=== PATIENT | female | born 1990 | race Caucasian/White ===

== ENCOUNTER 2017-04-12 09:19 | Emergency (ER) | payer OTHER ==
[2017-04-12] MEDS ORDERED: Sodium Chloride 0.9% 1,000 ML IV ONE (09:35)
[2017-04-12] MEDS ORDERED: Sodium Chloride 0.9% 1,000 ML ONE (09:45)
--- NOTE | 2017-04-12 09:56 | C.PDOC ---
History Of Present Illness Patient is a 26 y/o female, with no significant PMHx, presents to the ED for evaluation of dizziness, nausea, vomiting, and wobbly/weak in her legs for the last 4 days. Patient notes taking Advil at home with no improvement. Patient describes dizziness as spinning sensation, and is worse when moving her head. Patient feels as if she will fall when walking. Otherwise, denies any fever, chills, abdominal pain, headache, or any other associated symptoms at this time. No PMD Time Seen by Provider: 04/12/17 09:35 Chief Complaint (Nursing): Dizziness/Lightheaded History Per: Patient History/Exam Limitations: no limitations Onset/Duration Of Symptoms: Days (4) Current Symptoms Are (Timing): Still Present Recent travel outside of the [place]: No Additional History Per: Patient Past Medical History Reviewed: Historical Data, Nursing Documentation, Vital Signs Vital Signs: Last Vital Signs Temp 98.3 F 04/12/17 13:18 Pulse 73 04/12/17 13:18 Resp 18 04/12/17 13:18 BP 99/63 L 04/12/17 13:18 Pulse Ox 99 04/12/17 13:18 - Medical History PMH: No Chronic Diseases Surgical History: - [facility] Procedures ANESTH INJECT-SPIN CANAL (03/16/14) MONITORING NOS (03/15/14) LOW CERVICAL (03/16/14) OTHER LOCAL DESTRUC SKIN (03/16/14) PACKED CELL TRANSFUSION (03/16/14) Family History: States: Diabetes - Social History Hx Tobacco Use: No Hx Alcohol Use: Yes Hx Substance Use: No - Immunization History Hx Tetanus Toxoid Vaccination: No Hx Influenza Vaccination: No Hx Pneumococcal Vaccination: No Review Of Systems Except As Marked, All Systems Reviewed And Found Negative. Constitutional: Negative for: Fever, Chills Cardiovascular: Negative for: Chest Pain, Palpitations Respiratory: Negative for: Cough, Shortness of Breath Gastrointestinal: Positive for: Nausea, Vomiting. Negative for: Abdominal Pain , Diarrhea Musculoskeletal: Negative for: Leg Pain Skin: Negative for: Rash, Bruising Neurological: Positive for: Weakness, Dizziness. Negative for: Numbness, Headache Physical Exam - Physical Exam Appears: Non-toxic, No Acute Distress Skin: Normal Color, Warm, Dry Head: Atraumatic, Normacephalic Eye(s): bilateral: Normal Inspection Ear(s): Bilateral: Normal Nose: Normal Oral Mucosa: Moist Lips: Normal Appearing Teeth: Normal Dentition Gingiva: Normal Appearing Throat: Normal Neck: Normal, Normal ROM, Supple Chest: Symmetrical Cardiovascular: Rhythm Regular, No Murmur Respiratory: Normal Breath Sounds, No Accessory Muscle Use, No Rales, No Rhonchi , No Wheezing Gastrointestinal/Abdominal: Normal Exam, Soft, No Tenderness Back: Normal Inspection Extremity: Normal ROM, No Deformity Extremity: Bilateral: Atraumatic, Normal Color And Temperature, Normal ROM Pulses: Left Dorsalis Pedis: Normal, Right Dorsalis Pedis: Normal Neurological/Psych: Oriented x3, Normal Speech, Normal Cognition, Normal Cranial Nerves, Normal Motor, Normal Sensation (Normal strength and sensation to bilateral legs), No Romberg, Other (no nystagmus; no focal deficits) ED Course And Treatment - Laboratory Results Result Diagrams: 04/12/17 09:57 04/12/17 09:57 O2 Sat by Pulse Oximetry: 99 (on RA) Pulse Ox Interpretation: Normal Medical Decision Making Medical Decision Making: Initial Impression: Vertigo Initial Plan: * Blood work * Urinalysis * Antivert, Zofran, and IV fluids * reassess and disposition Progress note: Labs ordered and reviewed. On reassessment, patient is resting comfortably, no acute distress. Neurologically intact. No focal deficits. Patient is ambulating in the ED with no significant distress. 12:32 PM - Pt feels better. Will d/c home. Disposition - Disposition Referrals: [facility] Donaldson [Outside] Reba Vega MD [Staff Provider] - Disposition: HOME/ ROUTINE Disposition Time: 12:32 Condition: IMPROVED Additional Instructions: Ms. Hoffman, thank you for letting us take care of you today. Return to the ER if your symptoms worsen, or if any problems. Take the medication listed below as prescribed. Follow up with Dr. Emma Vega next week for a re-evaluation. His phone number is listed below so you can make an appointment. Prescriptions: Cephalexin [cephalexin] 1 tab PO BID #14 cap Meclizine [Meclizine*] 1 tab PO Q6 PRN #30 tab PRN Reason: Dizziness Instructions: Urinary Tract Infection in Women (ED), Vertigo (ED) Forms: Gen Discharge Inst Hebrew, [facility] (Korean) Print Language: DANISH - POA Present On Arrival: None - Clinical Impression Clinical Impression: UTI (urinary tract infection), Vertigo - Scribe Statement The provider has reviewed the documentation as recorded by the Scribe Ritesh Vega All medical record entries made by the Kwabenaibe were at my direction and personally dictated by me. I have reviewed the chart and agree that the record accurately reflects my personal performance of the history, physical exam, medical decision making, and the department course for this patient. I have also personally directed, reviewed, and agree with the discharge instructions and disposition.
[2017-04-12 10:01] LABS: BASO % 0.5 % (0.0-2.0); EOS % 0.4 % (0.0-4.0); HEMOGLOBIN 14.1 g/dL (11.0-16.0); LYMPH % 26.5 % (20.0-40.0); MEAN CELL VOLUME 83.8 fL (81.0-99.0); MEAN CORPUSCULAR HEMOGLOBIN 28.1 pg (27.0-31.0); MEAN CORPUSCULAR HGB CONC 33.5 g/dL (33.0-37.0); MEAN PLATELET VOLUME 7.7 fL (7.2-11.7); MONO # 0.5 K/uL (0.0-0.8); MONO % 6.4 % (0.0-10.0); NEUT % 66.2 % (50.0-75.0); RBC 5.01 Mil/uL (3.80-5.20); RED CELL DISTRIBUTION WIDTH 12.9 % (11.5-14.5); WHITE BLOOD COUNT 7.6 K/uL (4.8-10.8)
[2017-04-12 10:04] LABS: HCG,QUALITATIVE URINE NEGATIVE (NEGATIVE)
[2017-04-12 10:14] LABS: SQUAMOUS EPITHIAL 26 /hpf (0-5); URINE BACTERIA RARE (<OCC); URINE BILIRUBIN NEGATIVE (NEGATIVE); URINE BLOOD NEGATIVE (NEGATIVE); URINE CLARITY Hazy (Clear); URINE COLOR Yellow (YELLOW); URINE GLUCOSE (UA) NORMAL (Normal); URINE LEUKOCYTE ESTERASE 2+ Leu/uL (Negative); URINE NITRATE NEGATIVE (NEGATIVE); URINE PROTEIN NEGATIVE (NEGATIVE); URINE UROBILINOGEN NORMAL mg/dL (0.2-1.0)
[2017-04-12 10:25] LABS: ALBUMIN 3.9 g/dL (3.5-5.0)
[2017-04-12 10:27] LABS: GFR AFRICAN-AMERICAN > 60; GFR NON-AFRICAN AMERICAN > 60
[2017-04-12 10:28] LABS: ALB/GLOB RATIO 1.2 (1.0-2.1); ALT/SGPT 24 U/L (9-52); AST/SGOT 17 U/L (14-36); BLOOD UREA NITROGEN 6 mg/dL (7-17)
[2017-04-12 10:29] LABS: CALCIUM 8.2 mg/dl (8.6-10.4)
[2017-04-12 11:01] VITALS: RESP 18
[2017-04-12] MEDS ORDERED: Potassium Chloride 20 mEq/15 ml LIQ UD PO STA (11:11)
[2017-04-12] MEDS ORDERED: Potassium Chloride 20 mEq/15 ml LIQ UD ONE (11:15)
--- NOTE | 2017-04-12 12:10 | CT ---
PROCEDURE: CT HEAD WITHOUT CONTRAST. HISTORY: spinning sensation not resolved w/ Antivert COMPARISON: None available. TECHNIQUE: Axial computed tomography images were obtained through the head/brain without intravenous contrast. Radiation dose: Total exam DLP = 786.99 mGy-cm. This CT exam was performed using one or more of the following dose reduction techniques: Automated exposure control, adjustment of the mA and/or kV according to patient size, and/or use of iterative reconstruction technique. FINDINGS: HEMORRHAGE: No intracranial hemorrhage. BRAIN: No mass effect or edema. No atrophy or chronic microvascular ischemic changes.Please note that MRI with diffusion imaging is more sensitive in the detection of acute ischemic event. VENTRICLES: No hydrocephalus. CALVARIUM: Unremarkable. PARANASAL SINUSES: Unremarkable as visualized. No significant inflammatory changes. MASTOID AIR CELLS: Unremarkable as visualized. No inflammatory changes. OTHER FINDINGS: None. IMPRESSION: No acute intracranial pathology identified.
[2017-04-12 12:34] VITALS: O2SAT 99
[2017-04-12 13:20] VITALS: BP 99/63; PULSE 73; TEMP 98.3
--- NOTE | 2017-04-13 13:28 | CARD ---
APPROVED REPORT EKG Measurement Heart [id number] <Conclusion> Normal sinus rhythm with sinus arrhythmia Normal ECG
== END 2017-04-12 12:40 | disposition home or self-care (01) ==
LOC: C.ER 09:19
DX: R42 Dizziness and giddiness (principal); N39.0 Urinary tract infection, site not specified; E87.6 Hypokalemia
CPT/HCPCS: 70450; 80053; 81001; 82948; 84703; 85025; 93005; 96374; 99285; J2405; J7040

== ENCOUNTER 2017-11-15 18:42 | Emergency (ER) | payer SELFPAY ==
[2017-11-15 18:56] VITALS: BP 105/71; PULSE 86; RESP 20; TEMP 97.9; O2SAT 99
--- NOTE | 2017-11-15 19:14 | C.PDOC ---
History Of Present Illness 26 y/o female c/o sore throat, headache, bodyaches x 1 day and felt hot earlier. pt reports taking 1 otc advil with no improvement. pt reports her 3 y/ o child was sick a few days ago. denies cough, cp, sob. Time Seen by Provider: 11/15/17 19:02 Chief Complaint (Nursing): ENT Problem History Per: Patient History/Exam Limitations: no limitations Onset/Duration Of Symptoms: Days (1) Current Symptoms Are (Timing): Still Present Severity: Moderate Past Medical History Reviewed: Historical Data, Nursing Documentation, Vital Signs Vital Signs: Last Vital Signs Temp 97.9 F 11/15/17 18:53 Pulse 86 11/15/17 18:53 Resp 20 11/15/17 18:53 BP 105/71 11/15/17 18:53 Pulse Ox 99 11/15/17 19:20 - Medical History PMH: No Chronic Diseases Surgical History: - [facility] Procedures ANESTH INJECT-SPIN CANAL (03/16/14) MONITORING NOS (03/15/14) LOW CERVICAL (03/16/14) OTHER LOCAL DESTRUC SKIN (03/16/14) PACKED CELL TRANSFUSION (03/16/14) Family History: States: Unknown Family Hx, Diabetes - Social History Hx Tobacco Use: No Hx Alcohol Use: Yes Hx Substance Use: No - Immunization History Hx Tetanus Toxoid Vaccination: No Hx Influenza Vaccination: No Hx Pneumococcal Vaccination: No Review Of Systems Constitutional: Positive for: Fever (subjective) ENT: Positive for: Throat Pain. Negative for: Ear Pain, Nose Pain, Nose Discharge Cardiovascular: Negative for: Chest Pain Respiratory: Negative for: Cough, Shortness of Breath Gastrointestinal: Negative for: Nausea, Vomiting, Abdominal Pain Skin: Negative for: Rash Neurological: Positive for: Headache. Negative for: Weakness, Numbness, Dizziness Physical Exam - Physical Exam Appears: Non-toxic, No Acute Distress Skin: Warm, Dry Head: Atraumatic, Normacephalic Eye(s): bilateral: Normal Inspection Ear(s): Bilateral: Normal Nose: No Discharge Oral Mucosa: Moist Tongue: Normal Appearing Lips: Normal Appearing Throat: Erythema, Exudate, Other (uvula midline, tonsils not touching) Neck: Supple Lymphatic: Adenopathy (bilateral submandibular, right more than left) Cardiovascular: Rhythm Regular, No Murmur Respiratory: No Decreased Breath Sounds, No Wheezing Neurological/Psych: Oriented x3, Normal Speech, Normal Cognition ED Course And Treatment O2 Sat by Pulse Oximetry: 99 Medical Decision Making Medical Decision Makin26 y/o with sore throat, body aches, exudates on tonsils- tx for pharyngitis. Disposition Counseled Patient/Family Regarding: Diagnosis, Need For Followup, Rx Given - Disposition Referrals: [facility] [Outside] Disposition: HOME/ ROUTINE Disposition Time: 19:23 Condition: GOOD Additional Instructions: Por favor, tome Tylenol o Motrin para el dolor tome antibiticos segn lo recetado hasta que se complete. Erika lquidos tibios. Katty grgaras con agua salada tibia varias veces al da. Katty un seguimiento en la clnica mdica en unos pocos [place]. Please take Tylenol or Motrin for pain take antibiotics as prescribed until completed. Drink warm fluids. Gargle with warm salty water several times a day. Follow up in medical clinic in ea few days. Prescriptions: Amoxicillin [Amoxil 500 mg Cap] 500 mg PO BID #20 cap Instructions: Sore Throat in Adults Forms: [employer] (Icelandic), [employer] (Liberian), Gen Discharge Inst Liberian Print Language: MOLDOVAN - Clinical Impression Clinical Impression: Pharyngitis
== END 2017-11-15 20:10 | disposition home or self-care (01) ==
LOC: C.ER 18:42
DX: J02.9 Acute pharyngitis, unspecified (principal)

== ENCOUNTER 2018-07-10 11:47 | Emergency (ER) | payer OTHER ==
[2018-07-10 12:05] VITALS: RESP 18
--- NOTE | 2018-07-10 13:15 | C.PDOC ---
History Of Present Illness 27 y/o female presents to ED with c/o headache radiating down to the right ear and neck since last night. Admits to nausea and photophobia. Denies fever, visual changes, vomiting, body aches, chills, sob, rash, or dizziness. She took unknown medication @0300 with no improvement. Denies h/o migraines. <Haritha Jeffries - Last Filed: 07/11/18 20:11> <Leesa Wells - Last Filed: 07/10/18 13:54> <Jackie Jones - Last Filed: 07/10/18 15:00> History Per: Patient History/Exam Limitations: no limitations Onset/Duration Of Symptoms: Days Current Symptoms Are (Timing): Still Present <Haritha Jeffries - Last Filed: 07/11/18 20:11> Time Seen by Provider: 07/10/18 12:08 Chief Complaint (Nursing): ENT Problem Past Medical History Vital Signs: Last Vital Signs Temp 98.8 F 07/10/18 13:11 Pulse 87 07/10/18 13:11 Resp 18 07/10/18 13:11 BP 134/83 07/10/18 13:11 Pulse Ox 100 07/10/18 13:15 - [facility] Procedures ANESTH INJECT-SPIN CANAL (03/16/14) MONITORING NOS (03/15/14) LOW CERVICAL (03/16/14) OTHER LOCAL DESTRUC SKIN (03/16/14) PACKED CELL TRANSFUSION (03/16/14) <Leesa Wells - Last Filed: 07/10/18 13:54> Vital Signs: Last Vital Signs Temp 98.8 F 07/10/18 13:11 Pulse 87 07/10/18 13:11 Resp 18 07/10/18 13:11 BP 134/83 07/10/18 13:11 Pulse Ox 100 07/10/18 13:15 - [facility] Procedures ANESTH INJECT-SPIN CANAL (03/16/14) MONITORING NOS (03/15/14) LOW CERVICAL (03/16/14) OTHER LOCAL DESTRUC SKIN (03/16/14) PACKED CELL TRANSFUSION (03/16/14) <Jackie Jones - Last Filed: 07/10/18 15:00> Reviewed: Historical Data, Nursing Documentation, Vital Signs Vital Signs: Last Vital Signs Temp 98.8 F 07/10/18 13:11 Pulse 87 07/10/18 13:11 Resp 18 07/10/18 13:11 BP 134/83 07/10/18 13:11 Pulse Ox 100 07/10/18 13:11 - Medical History PMH: No Chronic Diseases Surgical History: - [facility] Procedures ANESTH INJECT-SPIN CANAL (03/16/14) MONITORING NOS (03/15/14) LOW CERVICAL (03/16/14) OTHER LOCAL DESTRUC SKIN (03/16/14) PACKED CELL TRANSFUSION (03/16/14) Family History: States: Diabetes - Social History Hx Tobacco Use: No Hx Alcohol Use: Yes Hx Substance Use: No - Immunization History Hx Tetanus Toxoid Vaccination: No Hx Influenza Vaccination: No Hx Pneumococcal Vaccination: No <Haritha Jeffries - Last Filed: 07/11/18 20:11> Review Of Systems Except As Marked, All Systems Reviewed And Found Negative. Gastrointestinal: Positive for: Nausea Musculoskeletal: Positive for: Neck Pain Neurological: Positive for: Headache <Haritha Jeffries - Last Filed: 07/11/18 20:11> Physical Exam - Physical Exam Appears: Non-toxic, Other (crying and uncomfortable) Skin: Warm, Dry, No Rash Head: Atraumatic, Normacephalic Eye(s): bilateral: Normal Inspection, PERRL, EOMI Ear(s): Bilateral: Normal Nose: Normal Oral Mucosa: Moist Throat: Normal, No Erythema, No Exudate Neck: Decreased ROM (full lateral rotation), Other (bilateral trapezius tenderness) Lymphatic: Normal Exam Chest: Symmetrical Cardiovascular: Rhythm Regular Respiratory: Normal Breath Sounds, No Rales, No Rhonchi, No Wheezing Gastrointestinal/Abdominal: Soft, No Tenderness, No Guarding, No Rebound Extremity: Normal ROM Neurological/Psych: Oriented x3, Normal Speech, Normal Cognition, Normal Cranial Nerves (2-12 grossly intact), Normal Motor, Normal Sensation <Haritha Jeffries - Last Filed: 07/11/18 20:11> ED Course And Treatment - Laboratory Results Result Diagrams: 07/10/18 13:52 07/10/18 13:52 <Karen,Jackie A - Last Filed: 07/10/18 15:00> - Laboratory Results Result Diagrams: 07/10/18 13:52 07/10/18 13:52 O2 Sat by Pulse Oximetry: 100 (RA) Pulse Ox Interpretation: Normal - CT Scan/US Head CT Other Rad Studies (CT/US): Read By Radiologist, Radiology Report Reviewed CT/US Interpretation: Accession No. : [id number]. Patient Name / ID : HELIO ELIZABETH S / [id number]. Exam Date : 07/10/2018 14:03:52 ( Approved ). Study Comment : Sex / Age : F / 27Y. Creator : Sho Harris MD. Dictator : Sho Harris MD. Hash Slinger : Bonding Equipment Operator : Sho Harris MD. Approver2 : Report Date : 07/10/2018 14:18:38. My Comment : . Date of service: 07/10/2018. PROCEDURE: CT HEAD WITHOUT CONTRAST. HISTORY: R/O Bleed. COMPARISON: Noncontrast head CT performed 04/12/17. TECHNIQUE: Axial computed tomography images were obtained through the head/brain without intravenous contrast. Radiation dose: Total exam DLP = 1142.32 mGy-cm. This CT exam was performed using one or more of the following dose reduction techniques: Automated exposure control, adjustment of the mA and/or kV according to patient size, and/or use of iterative reconstruction technique. FINDINGS: Mild streak artifact obscures evaluation of the skull base. HEMORRHAGE: No intracranial hemorrhage. BRAIN: No mass effect or edema. The jimenez-white matter differentiation appears intact. VENTRICLES: No hydrocephalus. CALVARIUM: Unremarkable. PARANASAL SINUSES: Unremarkable as visualized. No significant inflammatory changes. MASTOID AIR CELLS: Unremarkable as visualized. No inflammatory changes. OTHER FINDINGS: None. IMPRESSION: No acute intracranial pathology identified. Progress Note: Motrin ordered . On re-evaluation, pt notes pain persists. IV, Morphine and reglan ordered. Case discussed with Dr Wells who evaluated pt at bedside and agreed upon plan and treatment. On re-evaluation, pt notes she feels "much better". Headache improved. Full range of motion of the neck. (- )tita (-)therese. Remains afebrile. Tolerating po. Patient has no neurologic deficit, photophobia, rash, fever, or nuchal rigidity. Patient was instructed to follow up with physician/clinic in 1-2 days. Case discussed with Dr Jones who evaluated pt at bedsided and agreed upon plan and discharge. <Haritha Jeffries - Last Filed: 07/11/18 20:11> Supervising Attending Note - Supervising Attending Note The Documented history was done by the: Physician Chief Operating Officer The documented physical exam was done by the: Physician Chief Operating Officer The documented procedures were done by the: Physician Chief Operating Officer - Attestation: I have personally seen and examined this patient.: Yes I have fully participated in the care of the patient.: Yes I have reviewed all pertinent clinical information, including history, physical exam and plan: Yes - Notes: Notes:: headache, R NECK PAIN SINCE YEST. ?FEVER. NO TRAUMA. +NECK PAIN W MOVEMENT. +NAUSEA. TOOK UNK MED @ 0300 EXAM MOD DIST HEENT NO PHOTOPHOBIA; MMM; MOUTH WNL, NO LESIONS NECK LIMITED ROM FLEX>EXT DUE TO PAIN TORTICOLLIS? MENINGISM? FULL LATERAL ROTATION; B/L LAT NECK TEND , PT SENSITIVE TO TOUCH B/L NECK NEURO NO FOCAL DEF AO3 SKIN NO LESIONS GOOD TURGOR REMAINDER NEG <Leesa Wells - Last Filed: 07/10/18 13:54> Progress - Re-Evaluation Re-evaluation Note: 07/10/18 13:54 s/o dr JONES PENDING LABS, CT, DISPO <Leesa Wells - Last Filed: 07/10/18 13:54> Disposition <Leesa Wells - Last Filed: 07/10/18 13:54> <Jackie Jones - Last Filed: 07/10/18 15:00> - Disposition Disposition Time: 15:06 <Haritha Jeffries - Last Filed: 07/11/18 20:11> - Disposition Disposition: HOME/ ROUTINE Condition: STABLE Additional Instructions: Follow up with your primary medical doctor or clinic in 2-5 days for further evaluation. Take medications as prescribed. Return to the emergency department at any time if symptoms persist or worsen. Prescriptions: Naproxen [Naprosyn] 1 tab PO BID PRN #20 tab PRN Reason: Pain Instructions: Headache, Adult (DC) Forms: [employer] (Hong Konger) - Clinical Impression Clinical Impression: Headache - PA / DIRECTOR OF FIELD SERVICE / Resident Statement MD/DO has reviewed & agrees with the documentation as recorded. - Scribe Statement The provider has reviewed the documentation as recorded by the Scribe Mode Fischer All medical record entries made by the Kwabenaibtiago were at my direction and personally dictated by me. I have reviewed the chart and agree that the record accurately reflects my personal performance of the history, physical exam, medical decision making, and the department course for this patient. I have also personally directed, reviewed, and agree with the discharge instructions and disposition. <Haritha Jeffries - Last Filed: 07/11/18 20:11> Addendum Addendum: 07/10/18 15:00 Patient evaluated by me, states she currently feels much better. On exam, she is comfortable, PERRLA, EOMI, no rashes, mild TTP along B/L trapezius/paraspinal chad (cervical) without meningismus, (-) Kernig's, (-) Brudzinki's, RRR, CTA B/L, abdomen soft and NT/ND. Low suspicion for viral/bacterial meningitis. <Jackie Jones - Last Filed: 07/10/18 15:00>
[2018-07-10] MEDS ORDERED: Sodium Chloride 0.9% 1,000 ML IV ONE (13:16)
[2018-07-10 13:57] LABS: BASO # 0.1 K/uL (0.0-0.2); BASO % 0.5 % (0.0-2.0); HEMOGLOBIN 15.3 g/dL (11.0-16.0); LYMPH # 1.6 K/uL (1.0-4.3); LYMPH % 14.2 % (20.0-40.0); MEAN CELL VOLUME 84.2 fL (81.0-99.0); MEAN CORPUSCULAR HEMOGLOBIN 28.4 pg (27.0-31.0); MEAN CORPUSCULAR HGB CONC 33.7 g/dL (33.0-37.0); MONO # 0.6 K/uL (0.0-0.8); MONO % 5.4 % (0.0-10.0); NEUT # 8.8 K/uL (1.8-7.0); NEUT % 79.9 % (50.0-75.0); NRBC % 0.1 % (0.0-2.0); RBC 5.4 Mil/uL (3.80-5.20); RED CELL DISTRIBUTION WIDTH 12.9 % (11.5-14.5); WHITE BLOOD COUNT 11.1 K/uL (4.8-10.8)
[2018-07-10 14:01] LABS: HCG,QUALITATIVE URINE NEGATIVE (NEGATIVE)
[2018-07-10 14:04] LABS: URINE BILIRUBIN NEGATIVE (NEGATIVE); URINE BLOOD NEGATIVE (NEGATIVE); URINE CLARITY Clear (Clear); URINE COLOR Yellow (YELLOW); URINE GLUCOSE (UA) NORMAL (Normal); URINE LEUKOCYTE ESTERASE NEG Leu/uL (Negative); URINE PROTEIN NEGATIVE (NEGATIVE); URINE UROBILINOGEN NORMAL mg/dL (0.2-1.0)
[2018-07-10 14:10] LABS: ALB/GLOB RATIO 1.3 (1.0-2.1); ALT/SGPT 30 U/L (9-52); AST/SGOT 25 U/L (14-36); BLOOD UREA NITROGEN 7 mg/dL (7-17); CALCIUM 9.4 mg/dl (8.6-10.4); GFR NON-AFRICAN AMERICAN > 60
--- NOTE | 2018-07-10 14:22 | CT ---
Date of service: 07/10/2018 PROCEDURE: CT HEAD WITHOUT CONTRAST. HISTORY: R/O Bleed COMPARISON: Noncontrast head CT performed 04/12/17 TECHNIQUE: Axial computed tomography images were obtained through the head/brain without intravenous contrast. Radiation dose: Total exam DLP = 1142.32 mGy-cm. This CT exam was performed using one or more of the following dose reduction techniques: Automated exposure control, adjustment of the mA and/or kV according to patient size, and/or use of iterative reconstruction technique. FINDINGS: Mild streak artifact obscures evaluation of the skull base. HEMORRHAGE: No intracranial hemorrhage. BRAIN: No mass effect or edema. The jimenez-white matter differentiation appears intact. VENTRICLES: No hydrocephalus. CALVARIUM: Unremarkable. PARANASAL SINUSES: Unremarkable as visualized. No significant inflammatory changes. MASTOID AIR CELLS: Unremarkable as visualized. No inflammatory changes. OTHER FINDINGS: None. IMPRESSION: No acute intracranial pathology identified.
[2018-07-10 15:26] VITALS: BP 103/63; PULSE 77; TEMP 98.5
[2018-07-10 20:50] VITALS: O2SAT 100
== END 2018-07-10 15:30 | disposition home or self-care (01) ==
LOC: C.ER 11:47
DX: R51 Headache (principal)
CPT/HCPCS: 70450; 80053; 81001; 84703; 85025; 87070; 87430; 87804; 96361; 96374; 96375; 99284; J2270; J2765; J7030